=== PATIENT | female | born 1935 | race Caucasian/White ===

== ENCOUNTER → 2017-07-20 | Outpatient (CLI) | payer OTHER, BC ==
[~2017-07-20] MED LIST: DIPHENHIST50 MG PO; FLEXERIL PO; LASIX 40 MG TAB40 M2 PO; LEVOTHYROXINE 0.1 MG PO; MIRALAX17 G1 PO; ONDANSETRON HCL4 M2 PO; POTASSIUM CHLO10 ME1 PO; PROTONIX40 M1 PO; SIMVASTATIN40 MG PO; VENLAFAXINE HC150 M1 PO; XANAX 0.5 MG0.5 MG PO
== END ==
LOC: NUC 07-19 14:36
DX: R94.4 Abnormal results of kidney function studies (principal)

== ENCOUNTER → 2018-02-06 | Outpatient (CLI) | payer OTHER, BC | LOC: NUC 12:50 | DX: N13.5 Crossing vessel and stricture of ureter without hydronephrosis (principal); N13.9 Obstructive and reflux uropathy, unspecified ==

== ENCOUNTER 2020-02-25 14:22 | Emergency (ER) | payer OTHER, BC ==
[~2020-02-25] VITALS: Ht 154.9 cm; Wt 81.7 kg
[2020-02-25 16:32] LABS: ABSOLUTE NEUTROPHILS 9.6 thou/uL (1.4-8.2); BASOPHILS 0.6 % (0.0-2.0); EOSINOPHILS 0.1 % (0.0-3.0); HEMATOCRIT 41.6 % (37.0-47.0); HEMOGLOBIN 13.7 gm/dL (12.0-15.0); LYMPHOCYTES 10.9 % (24.0-44.0); MCH 30.3 pg (26.0-34.0); MCHC 32.9 g/dL (28.0-37.0); MCV 92.2 fL (80.0-100.0); MONOCYTES 5.6 % (1.0-8.0); PLATELET COUNT 234 thou/uL (150-400); POLYS 82.8 % (36.0-66.0); RBC 4.51 mil/uL (4.20-5.00); RDW 12.8 % (10.5-14.5); WBC 11.6 thou/uL (4.0-11.0)
[2020-02-25 16:42] LABS: CALCIUM 9.4 mg/dL (8.5-10.1); CREATININE 1.2 mg/dL (0.6-1.0); POTASSIUM 4.4 mmol/L (3.5-5.1)
[2020-02-25 16:53] LABS: ALBUMIN 4.3 g/dL (3.4-5.0); TOTAL BILIRUBIN 0.8 mg/dL (0.2-1.0); TOTAL PROTEIN 8.1 g/dL (6.4-8.2)
--- NOTE | 2020-02-25 17:10 | EKG ---
[facility] [place] [address] ELECTROCARDIOGRAM REPORT Name: SUZETTE SOTO Room #: REG [facility]#: [id number] Admission: 02/25/20 Attend Phys: Discharge: Date of : 37 Report #: [id number] THIS REPORT FOR: cc: FAM - Family physician unknown FAM - Family physician unknown Gama Brown MD [facility] ~ THIS REPORT FOR: //name// [facility] ED Test Date: 2020-02-25 Test Time: 16:50:40 Pat Name: SUZETTE SOTO Department: Room: Gender: F Therapist [place]ational[place] [facility] [place] 1935 Requested By: Daron Fonseca Order Number: [id number] MD: Gama Brown Measurements Intervals [place] Rate: 76 P: 34 [place]: 187 QRS: -26 QRSD: 95 T: 60 QT: 408 QTc: 459 Interpretive Statements Sinus rhythm Borderline left axis deviation Low voltage, precordial leads No previous ECG available for comparison Electronically Signed On 02-25-2020 17:10:08 EMERGENCY ROOM CLERK by Gama Brown [email or web address] <ELECTRONICALLY SIGNED> By: Gama Brown MD, FAC 02/25/20 1710 49 49 Gama Brown MD, FACC /EPI
[2020-02-25 17:18] LABS: URINE BILIRUBIN NEGATIVE (Negative); URINE BLOOD NEGATIVE (Negative); URINE CLARITY CLEAR; URINE COLOR YELLOW; URINE GLUCOSE-RANDOM* NEGATIVE (Negative); URINE KETONES NEGATIVE (Negative); URINE LEUKOCYTES-REFLEX NEGATIVE (Negative); URINE NITRITE-REFLEX NEGATIVE (Negative); URINE PROTEIN (DIPSTICK) NEGATIVE (Negative); URINE SPECIFIC GRAVITY 1.015 (1.005-1.035); URINE UROBILINOGEN 0.2 E.U./dl (0.2-1.0)
[2020-02-25] MEDS ORDERED: NORCO 5-325 TA1 EAC2 PO (18:07)
[2020-02-25 18:26] VITALS: BP 119/75
== END 2020-02-25 18:26 | disposition home or self-care (01) ==
LOC: ER 14:22
PROVIDERS: Emergency Medicine
DX: S52.122A Displaced fracture of head of left radius, initial encounter for closed fracture (principal); E03.9 Hypothyroidism, unspecified; K21.9 Gastro-esophageal reflux disease without esophagitis; E78.5 Hyperlipidemia, unspecified; Z88.1 Allergy status to other antibiotic agents; Z88.5 Allergy status to narcotic agent; Z88.0 Allergy status to penicillin; Z88.2 Allergy status to sulfonamides; Z79.899 Other long term (current) drug therapy; W18.30XA Fall on same level, unspecified, initial encounter; Y93.89 Activity, other specified; Y92.89 Other specified places as the place of occurrence of the external cause; Y99.9 Unspecified external cause status

== ENCOUNTER → 2020-07-17 | Outpatient (CLI) | payer OTHER, BC ==
[~2020-07-17] MED LIST changes: +NORCO 5-325 TA1 EAC2 PO
== END ==
LOC: LAB 09:20
PROVIDERS: ATTEND Anesthesiology
DX: Z01.812 Encounter for preprocedural laboratory examination (principal); Z20.822 Contact with and (suspected) exposure to COVID-19